=== PATIENT | female | born 1995 | race Asian ===

== ENCOUNTER 2018-04-26 17:02 | Emergency (ER) | payer OTHER ==
--- NOTE | 2018-04-26 18:46 | RAD ---
RIGHT SHOULDER THREE VIEWS: HISTORY: Right shoulder pain. COMPARISON: None. FINDINGS: Three views of the right shoulder show no evidence of acute fracture or dislocation. No soft tissue swelling is seen. No degenerative changes are present. The visualized right thorax is unremarkable. IMPRESSION: No evidence of acute osseous abnormality. POS: [facility]
[2018-04-26] MEDS ORDERED: Ibuprofen 800 MG TAB ONE (19:07)
== END 2018-04-26 19:10 | disposition home or self-care (01) ==
LOC: ERS 17:02
DX: M25.511 Pain in right shoulder (principal); Z79.899 Other long term (current) drug therapy